=== PATIENT | male | born 1995 | race Two or more races ===

== ENCOUNTER 2023-03-18 14:44 | Emergency (ER) | payer OTHER ==
[~2023-03-18] VITALS: Ht 185.4 cm; Wt 81.6 kg
== END 2023-03-18 17:41 | disposition home or self-care (01) ==
LOC: ER 14:44 → EDBD 14:51 → ER 17:41
PROVIDERS: General Practice
DX: U07.1 COVID-19 (principal)
CPT/HCPCS: 36415; 96372; 99283; J1100